=== PATIENT | female | born 1990 | race Caucasian/White ===

== ENCOUNTER → 2020-02-23 10:42 | Outpatient (BNVA) | payer MEDICAID, SELFPAY | PROVIDERS: PCP Emergency Medicine; Referring Provider Emergency Medicine; Visit Provider Surgery | DX: N63.11 Unspecified lump in the right breast, upper outer quadrant (principal) | CPT/HCPCS: 99212 ==

== ENCOUNTER 2020-03-01 13:26 | Outpatient (REF) | payer MEDICAID, SELFPAY ==
--- NOTE | 2020-03-01 13:30 | US_ITS ---
EXAMINATION: US DIAGNOSTIC ULTRASOUND BREAST, RIGHT CLINICAL INFORMATION: Status post excision approximately 6 months ago right breast mass, borderline findings between fibroadenoma and phylloides, final diagnosis benign phylloides. Tenderness near excision site. Also prior history excision large upper outer right fibroadenoma, 2012. COMPARISON: Ultrasound right breast 05/08/2019, 03/26/2012. TECHNIQUE: Ultrasound right breast is targeted to the 6:00 through 12:00 position. Grayscale imaging and color Doppler are performed without and with harmonics. FINDINGS: The oval solid mass 7:00 position noted on prior ultrasound just under 3 cm is no longer present. There is no local recurrence. Small superficial hypoechoic nodule measuring under 5 mm is demonstrated 8:00 position 3 cm from nipple and residing just beneath the skin. There is no associated internal or peripheral color flow. There is low level internal echogenicity. No increased through-transmission of sound. This may represent fat necrosis/oil cyst. Suggest follow-up imaging in 6 months. There is no skin thickening or edema tracking in soft tissue planes. No abscess. No hyperemia on color Doppler. Results are discussed with the patient at time of visit. US/US breast RT limited IMPRESSION: 1. Status post excision large oval solid mass lower outer right breast when compared with prior exam 05/08/2019. No local recurrence. 2. Small superficial hypoechoic nodule close to skin under 5 mm, possibly fat necrosis/oil cyst. ASSESSMENT: BI-RADS 3: Probably Benign RECOMMENDATION: Targeted right breast ultrasound in 6 months.
== END 2020-03-01 13:27 | disposition home or self-care (01) ==
LOC: HO.MAMMO 13:26
PROVIDERS: Visit Provider Surgery
DX: N63.10 Unspecified lump in the right breast, unspecified quadrant (principal)
CPT/HCPCS: 76642

== ENCOUNTER 2020-06-14 04:04 | Emergency (ER) | payer MEDICAID, SELFPAY ==
[2020-06-14 04:39] VITALS: BP 108/67; PULSE 59; RESP 16; TEMP 36.7; O2SAT 99; BMI 22.3
[2020-06-14 05:14] LABS: MANUAL DIFF FLAG NO
[2020-06-14 05:15] LABS: Basophils Percent Auto 0.4 % (0-2); Eosinophils Absolute Auto 0.4 X10*3/uL (0.0-0.4); Eosinophils Percent Auto 4.7 % (0-4); Hemoglobin 12.4 g/dl (12.0-16.0); Imm Gran Abs Auto 0.01 X10*3/uL (0.00-0.03); Imm Gran Pct Auto 0.1 % (0.0-0.4); Lymphocytes Absolute Auto 2.8 X10*3/uL (1.2-4.9); Lymphocytes Percent Auto 30.1 % (20-40); Mean Corpuscular HGB Conc 32.6 g/dl (31.0-35.0); Mean Corpuscular Hemoglobin 29.2 pg (27.0-33.0); Mean Corpuscular Volume 89.4 fL (80-98); Mean Platelet Volume 11.6 fL (9.4-12.3); Monocytes Absolute Auto 0.7 X10*3/uL (0.1-1.2); Monocytes Percent Auto 7.2 % (2-11); Neutrophils Absolute Auto 5.3 X10*3/uL (2.0-8.3); Neutrophils Percent Auto 57.5 % (45-73); Platelet Count 214 X10*3/uL (160-400); Red Blood Count 4.25 X10*6/uL (4.20-5.50); Red Cell Distribution Width 11.9 % (11.0-16.0); White Blood Count 9.2 X10*3/uL (4.8-10.8)
[2020-06-14 05:16] LABS: Glucose Urine UA NEG (NEG); Leukocyte Esterase Urine NEG (NEG); Nitrite Urine NEG (NEG); Urine Blood 1+ (NEG); Urine Ketones NEG (NEG); Urine Protein NEG (NEG-TRACE)
[2020-06-14 05:17] LABS: Appearance Urine CLEAR; Color Urine YELLOW
[2020-06-14 05:18] LABS: UPreg QC Valid YES; Urine Pregnancy NEGATIVE (NEGATIVE)
--- NOTE | 2020-06-14 05:19 | ED_ITS ---
HPI - General Adult General Chief complaint: Abdominal Pain Stated complaint: LUMP IN UPPER ABD Time Seen by Provider: 06/14/20 05:18 Source: patient Mode of arrival: ambulatory History of Present Illness HPI narrative: 30-year-old female without significant medical history who presents after having been playing Xbox with her and palpated her hand across her abdomen and noted that she had a small mass and when she pressed on it that it hurt. She stated that she had not felt to before and denies having any history of unexplained weight loss, fevers, chills, nausea, vomiting, abdominal pain while performing other activities, diarrhea, and denied her abdomen hurting prior to her pushing on this mass that she had identified. Related Data Allergies Allergy/AdvReac Type Severity Reaction Status Date / Time sulfamethoxazole Allergy Unknown ANAPHYLAXIS Verified 06/14/20 04:38 [From BACTRIM] trimethoprim [From BACTRIM] Allergy Unknown ANAPHYLAXIS Verified 06/14/20 04:38 Sulfa Allergy Unknown Itching Uncoded 06/14/20 04:38 Review of Systems Review of Systems: Pertinent positives and negatives as stated in HPI 10 point review of systems is otherwise negative. PMFSH Past Medical History Source: nursing notes reviewed Medical History Phyllodes tumor, benign Surgical History History of breast lump/mass excision Social History Social History Alcohol intake: never Smoking Status: Never smoker Advance Directives: No Physical Exam Vital Signs: Vital Signs: Last Vital Signs Temp 98.0 F 06/14/20 04:39 Pulse 59 06/14/20 04:39 Resp 16 06/14/20 04:39 BP 108/67 06/14/20 04:39 Pulse Ox 99 06/14/20 04:39 Body Mass Index 22.3 VITAL SIGNS: Reviewed. GENERAL: Well developed, well nourished, in no acute distress. HEAD: Normocephalic/atraumatic EYES: PERRLA, EOMI NOSE: Nares patent bilateral OROPHARYNX: no oral lesions noted, posterior pharynx clear NECK: Supple, no adenopathy LUNGS: Normal breath sounds. No adventitious sounds or accessory muscle use. SpO2<99> CARDIOVASCULAR: Regular rate and rhythm without noted murmurs ABDOMEN: Soft, tenderness over mid upper abdominal without rebound but unable to identify a mass, non-distended with bowel sounds. NEUROLOGIC: Alert and oriented x 4. Course Course Course Narrative: This is a 30-year-old female with history and clinical presentation consistent with likely lipoma and less likely a sebaceous cyst. Will obtain soft tissue ultrasound for further evaluation. Review of all investigations negative for any acute findings. Awaiting soft tissue ultrasound. Signed out to Dr Motley: f/u soft tissue ultrasound of abdominal wall. Medical Decision Making Lab Data Result diagrams: 06/14/20 05:07 06/14/20 05:07 Labs: Lab Results 06/14/20 06/14/20 06/14/20 Range/Units 05:07 05:07 05:07 WBC 9.2 (4.8-10.8) X10*3/uL RBC 4.25 (4.20-5.50) X10*6/uL Hgb 12.4 (12.0-16.0) g/dl Hct 38.0 (37-47) % MCV 89.4 (80-98) fL MCH 29.2 (27.0-33.0) pg MCHC 32.6 (31.0-35.0) g/dl RDW 11.9 (11.0-16.0) % Plt Count 214 (160-400) X10*3/uL MPV 11.6 (9.4-12.3) fL Immature Gran % (Auto) 0.1 (0.0-0.4) % Neut % (Auto) 57.5 (45-73) % Lymph % (Auto) 30.1 (20-40) % [place] % (Auto) 7.2 (2-11) % Eos % (Auto) 4.7 H (0-4) % Baso % (Auto) 0.4 (0-2) % Lymph # (Auto) 2.8 (1.2-4.9) X10*3/uL [place] # (Auto) 0.7 (0.1-1.2) X10*3/uL Eos # (Auto) 0.4 (0.0-0.4) X10*3/uL Baso # (Auto) 0.0 (0.0-0.2) X10*3/uL Abs Immat Gran (auto) 0.01 (0.00-0.03) X10*3/uL Absolute Neuts (auto) 5.3 (2.0-8.3) X10*3/uL Absolute Nucleated RBC 0.000 (0.0-0.012) X10*3/uL Nucleated RBC % (auto) 0.0 (0.0-0.2) /100WBC Hold Blue Top SEE NOTE Sodium 140 (135-145) mmol/L Potassium 3.5 (3.3-5.1) mmol/L Chloride 104 (96-108) mmol/L Carbon Dioxide 28 (22-29) mmol/L Anion Gap 12 (12-20) BUN 9 (9-16) mg/dL Creatinine 0.79 (0.5-1.4) mg/dL Estim Creat Clear Calc 83.0 Estimated GFR > 60 Random Glucose 89 (60-115) mg/dL Calcium 9.3 (8.4-10.2) mg/dL Total Bilirubin 0.5 (0.0-1.0) mg/dL AST 14 (5-31) U/L ALT 11 (0-31) U/L Alkaline Phosphatase 70 (39-117) U/L Total Protein 7.4 (6.5-8.0) g/dL Albumin 4.5 (3.5-5.0) g/dL Urine Color Urine Appearance Urine pH (5.0-8.0) Ur Specific [place] (1.005-1.025) Urine Protein (NEG-TRACE) MG/DL Urine Glucose (UA) (NEG) MG/DL Urine Ketones (NEG) MG/DL Urine Blood (NEG) Urine Nitrite (NEG) Ur Leukocyte Esterase (NEG) Urine RBC (0) /HPF Urine WBC (0-4) /HPF Ur Squamous Epith Cells /LPF Urine Bacteria /LPF Urine Test (NEGATIVE) 06/14/20 06/14/20 Range/Units 05:07 05:07 WBC (4.8-10.8) X10*3/uL RBC (4.20-5.50) X10*6/uL Hgb (12.0-16.0) g/dl Hct (37-47) % MCV (80-98) fL MCH (27.0-33.0) pg MCHC (31.0-35.0) g/dl RDW (11.0-16.0) % Plt Count (160-400) X10*3/uL MPV (9.4-12.3) fL Immature Gran % (Auto) (0.0-0.4) % Neut % (Auto) (45-73) % Lymph % (Auto) (20-40) % [place] % (Auto) (2-11) % Eos % (Auto) (0-4) % Baso % (Auto) (0-2) % Lymph # (Auto) (1.2-4.9) X10*3/uL [place] # (Auto) (0.1-1.2) X10*3/uL Eos # (Auto) (0.0-0.4) X10*3/uL Baso # (Auto) (0.0-0.2) X10*3/uL Abs Immat Gran (auto) (0.00-0.03) X10*3/uL Absolute Neuts (auto) (2.0-8.3) X10*3/uL Absolute Nucleated RBC (0.0-0.012) X10*3/uL Nucleated RBC % (auto) (0.0-0.2) /100WBC Hold Blue Top Sodium (135-145) mmol/L Potassium (3.3-5.1) mmol/L Chloride (96-108) mmol/L Carbon Dioxide (22-29) mmol/L Anion Gap (12-20) BUN (9-16) mg/dL Creatinine (0.5-1.4) mg/dL Estim Creat Clear Calc Estimated GFR Random Glucose (60-115) mg/dL Calcium (8.4-10.2) mg/dL Total Bilirubin (0.0-1.0) mg/dL AST (5-31) U/L ALT (0-31) U/L Alkaline Phosphatase (39-117) U/L Total Protein (6.5-8.0) g/dL Albumin (3.5-5.0) g/dL Urine Color YELLOW Urine Appearance CLEAR Urine pH 6.0 (5.0-8.0) Ur Specific [place] 1.020 (1.005-1.025) Urine Protein NEG (NEG-TRACE) MG/DL Urine Glucose (UA) NEG (NEG) MG/DL Urine Ketones NEG (NEG) MG/DL Urine Blood 1+ H (NEG) Urine Nitrite NEG (NEG) Ur Leukocyte Esterase NEG (NEG) Urine RBC 0 (0) /HPF Urine WBC 0-2 (0-4) /HPF Ur Squamous Epith Cells 2+ /LPF Urine Bacteria 1+ /LPF Urine Test NEGATIVE (NEGATIVE) Discharge Plan Discharge Clinical Impression: Mass of soft tissue of abdomen Patient Disposition: Home, Self-Care Instructions: Soft Tissue Mass (ED) Additional Instructions: Please follow-up with your primary care provider for further evaluation and outpatient management. Do not hesitate to return to the emergency department should you experience any acute worsening or new symptoms. Referrals: [facility] [Primary Care Provider] - 2 days
[2020-06-14 05:24] LABS: Bacteria Urine 1+ /LPF; RBC Urine 0 /HPF (0); Squamous Epithelial Cell Urine 2+ /LPF; WBC Urine 0-2 /HPF (0-4)
[2020-06-14 05:39] LABS: Alanine Aminotransferase 11 U/L (0-31); Albumin Level 4.5 g/dL (3.5-5.0); Alkaline Phosphatase 70 U/L (39-117); Anion Gap 12 (12-20); Aspartate Amino Transferase 14 U/L (5-31); Bilirubin Total 0.5 mg/dL (0.0-1.0); Blood Urea Nitrogen 9 mg/dL (9-16); Calcium 9.3 mg/dL (8.4-10.2); Carbon Dioxide 28 mmol/L (22-29); Chloride 104 mmol/L (96-108); Estimated Glomerular Filt Rate > 60; Glucose Random 89 mg/dL (60-115); Potassium 3.5 mmol/L (3.3-5.1); Sodium 140 mmol/L (135-145); Total Protein 7.4 g/dL (6.5-8.0)
[2020-06-14 08:38] VITALS: BP 129/68; PULSE 76; RESP 19; TEMP 36.8; O2SAT 100
== END 2020-06-14 16:04 | disposition home or self-care (01) ==
PROVIDERS: Emergency Provider Student in an Organized Health Care Education/Training Program
DX: R19.00 Intra-abdominal and pelvic swelling, mass and lump, unspecified site (principal)
CPT/HCPCS: 36415; 80053; 81001; 81025; 85025; 99283; 99284

== ENCOUNTER 2023-01-28 11:28 | Outpatient (REF) | payer MEDICAID, SELFPAY ==
[2023-01-28 14:28] LABS: Alanine Aminotransferase 12 U/L (0-31); Albumin Level 4.3 g/dL (3.5-5.0); Alkaline Phosphatase 63 U/L (39-117); Anion Gap 9 (12-20); Aspartate Amino Transferase 15 U/L (5-31); Bilirubin Total 0.5 mg/dL (0.0-1.0); Blood Urea Nitrogen 14 mg/dL (9-16); Calcium 9.2 mg/dL (8.4-10.2); Carbon Dioxide 27 mmol/L (22-29); Chloride 108 mmol/L (96-108); Estimated Glomerular Filt Rate > 60; Glucose Random 77 mg/dL (60-115); Potassium 3.3 mmol/L (3.3-5.1); Sodium 141 mmol/L (135-145); Total Protein 7.5 g/dL (6.5-8.0)
[2023-01-28 14:29] LABS: Syphilis Screen Nonreactive (Nonreactive)
[2023-01-28 14:33] LABS: TSH reflex Free T4 1.17 uIU/mL (0.32-4.0)
[2023-01-28 14:50] LABS: CT PCR NOT DETECTED (Not Detect.); NG PCR NOT DETECTED (Not Detect.)
[2023-01-29 04:09] LABS: Follicle Stimulating Hormone 10.4 mIU/mL; Prolactin 5.5 ng/mL
[2023-01-29 08:03] LABS: HIV AB/AG Nonreactive (Nonreactive); HIV Num 1 0.06 S/CO (0.00-0.99); ~HepC Num1 0.51 S/CO (0.00-0.79); ~Hepatitis C Antibody Nonreactive (Nonreactive)
== END 2023-01-28 11:29 | disposition home or self-care (01) ==
LOC: HO.HHCL 11:28
PROVIDERS: Visit Provider General Practice
DX: Z31.69 Encounter for other general counseling and advice on procreation (principal)
CPT/HCPCS: 0353U; 36415; 80053; 83001; 84146; 84443; 86780; 86803; 87389

== ENCOUNTER 2023-02-27 14:23 | Outpatient (REF) | payer MEDICAID, SELFPAY ==
--- NOTE | ~2023-02-27 | US_ITS ---
EXAMINATION: US PELVIS CLINICAL INFORMATION: Dyspareunia, history of ovarian cyst in 2020. Lower pelvic midline pain. COMPARISON: Pelvic ultrasound of 09/03/2019. TECHNIQUE: Ultrasound of the pelvis is performed using both transabdominal and transvaginal transducers along with Doppler. Transvaginal imaging is performed due to inadequate visualization transabdominally. FINDINGS: The uterus measures 10.6 x 3.2 x 3.6 cm. No discrete fibroid identified. Endometrial thickness is 0.4 cm. There is no significant free fluid. Right ovary measures 1.1 x 1.4 x 1.2 cm, volume 1.2 mL and is unremarkable. Left ovary measures 2.5 x 2.0 x 1.9 cm, volume 6.7 mL. Left ovarian 1.0 x 0.7 x 1.1 cm cyst is likely physiologic. Previous ultrasound of 09/03/2019 demonstrated a 2.5 x 1.5 x 2 cm left ovarian cyst. There is no indication for followup imaging. US/US pelvic and transvaginal IMPRESSION: Left ovarian 1.1 cm cyst is likely physiologic. Previous ultrasound of 09/03/2019 demonstrated a 2.5 x 1.5 x 2 cm left ovarian cyst. There is no indication for followup imaging.
== END 2023-02-27 14:24 | disposition home or self-care (01) ==
LOC: HO.US 14:23
PROVIDERS: PCP General Practice; Visit Provider General Practice
DX: N94.10 Unspecified dyspareunia (principal); N97.9 Female infertility, unspecified; Z87.42 Personal history of other diseases of the female genital tract
CPT/HCPCS: 76830; 76856

== ENCOUNTER 2024-09-08 12:16 | Outpatient (REF) | payer MEDICAID, SELFPAY ==
--- OUTSIDE RECORDS SUMMARY | 2024-09-08 13:05 | XMS_ITS | Clinical Summary ---
Author Organization [facility] Address [address] [place] [phone] Phone Care Team Providers Care Erp Programmer Name Role Phone MenesesHeriberto bryan Primary Care Provider [phone] Immunizations Immunization Administration Dates Next Due DTP 08/02/1995, 3,1991,08/01,1991 HPV, Quadrivalent 07/04/2007,02/28/2007,12/28/19 07 Hep B, ped/adol 07/02/1995,01/01/1995,12/01/1994 Hib (PRP-T) 06/01/1992, 2,1991,06/01 IPV 08/02/1995, 3,1991,06/01 Influenza, injectable, trivalent 03/29/2008 MMR 08/02/1995,06/01/1992 Meningococcal Conj (Menactra) MCV4P 03/29/2008 Td (adult) (MBL), 2 Lf tetan us toxoid, PF, adsorbed 05/28/2002 Tdap 12/27/2006 Varicella 03/29/2008,02/17/1997 Family History Relation Name Status Comments Father Alive Father: Hyperte nsion / diabetes Mother Alive Mother: Hyperte nsion / asthma Social History Tobacco Use Types Packs/Day Years Used Date Smoking Tobacco: Never Assessed Comments Unknown Sex and Gender Information Value Date Recorded Sex Assigned at Not on file Legal Sex Female 4:26 PM EDT Gender Identity Not on file Sexual Orientation Not on file Plan of Treatment Health Maintenance Due Date Last Done Comments DTaP,Tdap,and Td Vaccines (7 - Td or Tdap) 12/27/2016 12/27/2006, 05/28/2002, 08/02/1995, Additional history exists COVID-19 Vaccine ( season) 2023 Influenza Vaccines (#1) 2024 03/29/2008 HIB Vaccines Completed 06/01/1992, 11/04, 1991, Additional history exists Hepatitis B Vaccines Completed 07/02/1995, 01/01/1995, 12/01/1994 IPV Vaccines Completed 08/02/1995, 08/04, 1991, Additional history exists MMR Vaccines Completed 08/02/1995, 06/01/1992 HPV Vaccines Completed 07/04/2007, 02/02, 12/27/2006 Meningococcal Vaccine Completed 03/29/2008 Varicella Vaccines Completed 03/29/2008, 02/17/1997 Hepatitis A Vaccines Aged Out No long er eligible based on patient's age to complete this topic Men B Vaccine Aged Out No longer elig ible based on patient's age to complete this topic Pneumococcal Vaccine Aged Out No long er eligible based on patient's age to complete this topic Care Teams Erp Programmer Relationship Specialty Start Date End Date Heriberto Meneses [address] [place] [id number] PCP - General 10/12/16
--- OUTSIDE RECORDS SUMMARY | 2024-09-08 13:05 | XMS_ITS | Encounter Summary ---
Author Organization [employer] Address [address] [facility] [address] [place] [address] Care Team Providers Care Grocery Stock Clerk Name Role Phone Angelic Keller MD Primary Care Provider [phone] Reason for Visit * Reason Onset Date Comments Chart prep 09/07/2024 Encounter Details Date Type Department Care Team ([facility] st Contact Info) Description 09/07/2024 Telephone [facility] MEDICINE [address] [place], [place] [phone] Angelic Keller MD [address] [place], [place] [phone] Chart prep Social History Tobacco Use Types Packs/Day Years Used Date Smoking Tobacco: Never Passive Smoke Exposure: Never Smokeless Tobacco: Never Alcohol Use Standard Drinks/Week Comments Never 0 (1 standard drink = 0.6 oz pur e alcohol) Depression Answer Date Recorded Patient Health Questionnaire-9 Score 0 09/08/2024 Patient Health Questionnaire-9 Score 0 09/08/2024 Last PHQ-9: Questionnaire Data Not on file 0 09/08/2024 Housing Stability Answer Date Recorded What is your housing situation today? I have grecia l[place] 01/28/[address] you li ve. Do you have problems with any of the following? None of the above 01/28/2023 Food Insecurity Answer Date Recorded Within the past 12 months, y ou worried that your food would run out before you got money to buy more: Often true 12/26/2023 Within the past 12 months,th e food you bought just didn't last and you didn't have enough money to get more: Often true Transportation Answer Date Recorded In the past 12 months, has l ack of transportation kept you from medical appts, meetings, work or from getting things needed for daily living? Yes, it has kept me from non-medical meetings, work, or getting things that I need 12/26/2023 Utilities Answer Date Recorded In the past 12 months, has t he electric, gas, oil or water company threatened to shut off services in your home? No 01/28/2023 Depression Answer Date Recorded Patient Health Questionnaire-2 Score 0 09/08/2024 Internet Access Answer Date Recorded Internet Access Q1 Yes 12/26/2023 Internet Access Q2 Not on file 12/26/2023 Comments Unknown Sex and Gender Information Value Date Recorded Sex Assigned at Female 01/01/2022 10:20 AM EDT Legal Sex Female 10:20 AM EDT Gender Identity Female 01/01/2022 10:20 AM EDT Sexual Orientation Straight 11/16/2022 8: 55 AM EDT documented as of this encounter Miscellaneous Notes * Telephone Encounter - Jacey Herr MA - 09/07/2024 9:46 AM EDT Chart Prep Labs: done Images: done Referrals: complete Vaccines due: Covid Screenings: not applicable Overdue care gaps: SBIRT, PHQ-9, CESAR-7, Oral health screening, and Disability screen documented in this encounter Plan of Treatment Upcoming Encounters Date Type Department Care Team (Late st Contact Info) Description 09/21/2024 2:00 PM EDT Procedure Visit [facility] MEDICINE [address] [place] [address] Angelic Keller MD [address] [place] [address] documented as of this encounter Visit Diagnoses Not on filedocumented in this encounter Care Teams Grocery Stock Clerk Relationship Specialty Start Date End Date Angelic Keller MD [address] [place] [address] PCP - General Family Medicine 12/06/22 documented as of this encounter
== END 2024-09-08 12:17 | disposition home or self-care (01) ==
LOC: HO.HHCLNP 12:16
PROVIDERS: Visit Provider General Practice
DX: R30.0 Dysuria (principal); Z12.4 Encounter for screening for malignant neoplasm of cervix
CPT/HCPCS: 87086; 87088; 87186; 87626; 88175